=== PATIENT | female | born 1970 | race Caucasian/White ===

== ENCOUNTER 2018-08-08 17:56 | Emergency (ER) | payer BC ==
[2018-08-08] MEDS: IBUPROFEN 200 MG TAB PO (20:32)
[2018-08-08] MEDS: ACETAMINOPHEN 325 MG TAB PO (20:32)
== END 2018-08-08 21:05 | disposition home or self-care (01) ==
LOC: FTE 17:56
DX: N39.0 Urinary tract infection, site not specified (principal); R05 Cough
CPT/HCPCS: 99283